=== PATIENT | female | born 1985 | race Caucasian/White ===

== ENCOUNTER 2018-02-11 22:42 | Emergency (ER) | payer OTHER ==
[~2018-02-11] VITALS: Ht 167.6 cm; Wt 150.1 kg
[2018-02-11 22:48] VITALS: BP 149/86
--- NOTE | 2018-02-11 22:52 | NUR ---
Pt sent to lobby to wait for ED bed.
--- NOTE | 2018-02-12 01:06 | NUR ---
PT TAKEN TO BED 10
--- NOTE | 2018-02-12 02:00 | NUR ---
PT BIB SELF C/O HEADACHE FOR 3 DAYS, PT HAS TAKEN TYLENOL AT HOME W/ NO RELIEF, PT STATES SHE IS UNABLE TO SLEEP AND ZAVALA IS WORSENING TODAY. PT HAS SENSITIVITY TO LIGHT AND SOUND. PT IS AWAKE AND ACTING APPROPRIATE, EYES PERRL. PT LAYING IN BED, LIGHTS DIMMED, PT POSITIONED TO COMFORT. NO PMH
--- NOTE | 2018-02-12 03:01 | NUR ---
PT PENDING MD SIMMONS, IN BED SLEEPING, NO NEW NEEDS AT THIS TIME.
[2018-02-12] MEDS ORDERED: NACL 0.9% 1,000 ML IV SCH (03:11)
[2018-02-12] MEDS ORDERED: METOCLOPRAMIDE 10 MG/2 ML INJ VIAL IVP ONE (03:15)
[2018-02-12] MEDS ORDERED: MORPHINE SULFATE 4 MG/ML SYR IM ONE (03:15)
[2018-02-12 03:32] LABS: APPEARANCE,URINE CLEAR (CLEAR)
[2018-02-12 03:33] LABS: BILIRUBIN,URINE NEGATIVE (NEGATIVE); BLOOD, URINE NEGATIVE (NEGATIVE); COLOR,URINE YELLOW (YELLOW); LEUKOCYTE ESTERASE ,URINE NEGATIVE (NEGATIVE); NITRITE, URINE NEGATIVE (NEGATIVE); UGLUCOSE NEGATIVE (NEGATIVE)
--- NOTE | 2018-02-12 04:51 | NUR ---
PT IN BED SLEEPING EASLY AROUSABLE, STATES NO HEADACHE AT THIS TIME, COMFORT NEEDS MET.
[2018-02-12 05:32] VITALS: BP 139/76
--- NOTE | 2018-02-12 05:32 | NUR ---
Patient discharged with v/s stable. Written and verbal after care instructions given and explained. Patient alert, oriented and verbalized understanding of instructions. Ambulatory with steady gait. All questions addressed prior to discharge. ID band removed. Patient advised to follow up with PMD. Rx of NORCO, REGLAN given. Patient educated on indication of medication including possible reaction and side effects. Opportunity to ask questions provided and answered. PT ACCOMPANIED BY FRIEND WHO WILL BE DRIVING HOME, PT ADVISED NOT TO DRIVE.
== END 2018-02-12 05:32 | disposition home or self-care (01) ==
LOC: MED 22:42
DX: R51 Headache (principal); R11.2 Nausea with vomiting, unspecified; F12.10 Cannabis abuse, uncomplicated; Z90.89 Acquired absence of other organs; Z90.49 Acquired absence of other specified parts of digestive tract; Z88.6 Allergy status to analgesic agent
CPT/HCPCS: 81003; 81025; 96361; 96374; 96375; 99284; J2270; J2765; J7030

== ENCOUNTER 2018-07-21 23:40 | Emergency (ER) | payer OTHER ==
[~2018-07-21] VITALS: Ht 167.6 cm; Wt 147.9 kg
[2018-07-21 23:45] VITALS: BP 154/77
--- NOTE | 2018-07-21 23:52 | NUR ---
PT AMULATED TO BED 12. URINE SAMPLE COLLECTED.
--- NOTE | 2018-07-22 00:23 | NUR ---
PT TO ED WITH C/O HEADACHE X 2 DAYS. PT REPORT N/V. NO NEURO DEFECITS NOTED. PMH OF MIGRAINES. PT PLACED INTO BED, PENDING MD SIMMONS.
[2018-07-22] MEDS ORDERED: ONDANSETRON 4 MG ODT PO ONE (00:25)
[2018-07-22] MEDS ORDERED: KETOROLAC 60 MG/2 ML VIAL IM ONE (00:25)
[2018-07-22] MEDS ORDERED: MORPHINE SULFATE 4 MG/ML SYR IM ONE (01:05)
--- NOTE | 2018-07-22 02:47 | NUR ---
Patient discharged with v/s stable. Written and verbal after care instructions given and explained. Patient alert, oriented and verbalized understanding of instructions. Ambulatory with steady gait. All questions addressed prior to discharge. ID band removed. Patient advised to follow up with PMD. Rx of FIORCET given. Patient educated on indication of medication including possible reaction and side effects. Opportunity to ask questions provided and answered.
[2018-07-22 02:48] VITALS: BP 148/97
== END 2018-07-22 02:48 | disposition home or self-care (01) ==
LOC: MED 23:40
DX: G43.909 Migraine, unspecified, not intractable, without status migrainosus (principal); F17.210 Nicotine dependence, cigarettes, uncomplicated; Z98.890 Other specified postprocedural states; Z88.6 Allergy status to analgesic agent; Z71.6 Tobacco abuse counseling
CPT/HCPCS: 81002; 81025; 96372; 99283; J1885; J2270; Q0162

== ENCOUNTER 2018-12-13 14:14 | Emergency (ER) | payer OTHER ==
[~2018-12-13] VITALS: Ht 167.6 cm; Wt 147.1 kg
[2018-12-13 14:19] VITALS: BP 130/88
--- NOTE | 2018-12-13 16:14 | NUR ---
PT VSS. PT REPORTS /10 MIDSTERNAL NON RADIATING SQUEEZING PAIN ALONG W/ HEADACHE. NO N/V, NO VISUAL DISTURBANCES, AAOX4, CAP REFIL <2 SEC, RR EVEN AND NON-LABORED, RADIAL PULSES EQUAL 2+
--- NOTE | 2018-12-13 16:38 | NUR ---
PT BIB SELF WITH C/O CP X3 DAYS. NON-RADIATING CONSTANT MIDSTERNAL SQUEEZING PRESSURE AT 7/10 THAT INCREASES AND TURNS INTO SHARP PAIN W/ COUGH. COUGH X2 DAY. PT STATES THAT SHE COUGHS GREEN SPUTUM, HAS CHIILS AND FEELS WARM, NO TEMP TAKEN AT HOME. DENIES ANY N,V, D ATB THIS TIME. BREATHING EVEN AND NON-LABORED. COUGH PRESENT . SLIGHT WHEEZING ON RT LUNGS UPON AUSCULTATION. CONNECTED TO MONITOR. O2 SAT 95% ON RA. ER TO SEE THE PT. WILL CONTINUE TO MONITOR PT. MEDHX:OBESE RX:DENIES
[2018-12-13] MEDS ORDERED: ALBUTEROL 0.083% 2.5 MG/3 ML NEBU INH ONE (17:45)
--- NOTE | 2018-12-13 17:51 | NUR ---
Patient taken to XRAY via wheelchair by tech.
[2018-12-13 19:30] VITALS: BP 141/60
--- NOTE | 2018-12-13 19:30 | NUR ---
Patient discharged with v/s stable. Written and verbal after care instructions given and explained. Patient alert, oriented and verbalized understanding of instructions. Ambulatory with steady gait. All questions addressed prior to discharge. ID band removed. Patient advised to follow up with PMD. Rx of PREDNISONE, DEXTROMETHORPHAN HYDROBROMIDE, TESSALON PERLES given. Patient educated on indication of medication including possible reaction and side effects. Opportunity to ask questions provided and answered.
== END 2018-12-13 19:30 | disposition home or self-care (01) ==
LOC: MED 14:14
DX: J20.8 Acute bronchitis due to other specified organisms (principal); Z88.6 Allergy status to analgesic agent; Z98.890 Other specified postprocedural states; Z90.49 Acquired absence of other specified parts of digestive tract
CPT/HCPCS: 71046; 93005; 94640; 99283; J7613

== ENCOUNTER 2022-01-10 02:51 | Emergency (ER) | payer OTHER ==
[~2022-01-10] VITALS: Ht 167.6 cm; Wt 129.3 kg
[2022-01-10 03:12] VITALS: BP 143/88
--- NOTE | 2022-01-10 03:15 | NUR ---
PT TO LOBBY
--- NOTE | 2022-01-10 03:45 | NUR ---
PT TAKEN TO RAD
[2022-01-10] MEDS ORDERED: METH4TAB1 PO (04:12)
[2022-01-10 04:15] VITALS: BP 143/88
--- NOTE | 2022-01-10 04:15 | NUR ---
Patient discharged with v/s stable. Written and verbal after care instructions given and explained. Patient alert, oriented and verbalized understanding of instructions. Ambulatory with steady gait. All questions addressed prior to discharge. ID band removed. Patient advised to follow up with PMD. Rx of MEDROL given. Patient educated on indication of medication including possible reaction and side effects. Opportunity to ask questions provided and answered.
== END 2022-01-10 04:15 | disposition home or self-care (01) ==
LOC: MED 02:51
DX: J20.8 Acute bronchitis due to other specified organisms (principal); F17.200 Nicotine dependence, unspecified, uncomplicated; Z90.49 Acquired absence of other specified parts of digestive tract; Z98.890 Other specified postprocedural states; Z79.899 Other long term (current) drug therapy; Z88.6 Allergy status to analgesic agent
CPT/HCPCS: 71045; 99283

== ENCOUNTER 2022-05-03 17:17 | Emergency (ER) | payer OTHER ==
[~2022-05-03] VITALS: Ht 175.3 cm; Wt 117.9 kg
[~2022-05-03 17:17] MED LIST: METH4TAB1 PO
[2022-05-03 17:19] VITALS: BP 195/91
[2022-05-03] MEDS ORDERED: CYCL-711 PO (18:21)
[2022-05-03] MEDS ORDERED: LID5T TP (18:21)
[2022-05-03] MEDS: KETOROLAC 30 MG/ML VIAL IM ONE (18:30)
[2022-05-03 18:45] VITALS: BP 161/80
--- NOTE | 2022-05-03 18:46 | NUR ---
Patient discharged with v/s stable. Written and verbal after care instructions given and explained. Patient alert, oriented and verbalized understanding of instructions. Ambulatory with steady gait. All questions addressed prior to discharge. ID band removed. Patient advised to follow up with PMD. Rx of LIDODERM, FLEXERIL given. Patient educated on indication of medication including possible reaction and side effects. Opportunity to ask questions provided and answered.
== END 2022-05-03 18:45 | disposition home or self-care (01) ==
LOC: MED 17:17
DX: M54.50 Low back pain, unspecified (principal); Z79.899 Other long term (current) drug therapy; Z88.6 Allergy status to analgesic agent
CPT/HCPCS: 81025; 96372; 99283; J1885

== ENCOUNTER 2023-07-09 07:09 | Emergency (ER) | payer MEDICAID, OTHER ==
[~2023-07-09] VITALS: Ht 162.6 cm; Wt 123.4 kg
[~2023-07-09 07:09] MED LIST changes: +CYCL-711 PO; +LID5T TP
[2023-07-09 07:25] VITALS: BP 146/86; PULSE 74; RESP 18; TEMP 97; O2SAT 99
[2023-07-09] MEDS ORDERED: ACET-10509 PO (07:55)
[2023-07-09] MEDS ORDERED: TOBR5SOL38 LEFT EYE (07:55)
[2023-07-09 08:09] VITALS: BP 146/86; PULSE 74; RESP 18; TEMP 97; O2SAT 99
== END 2023-07-09 08:09 | disposition home or self-care (01) ==
LOC: MED 07:09
DX: H00.014 Hordeolum externum left upper eyelid (principal); Z90.49 Acquired absence of other specified parts of digestive tract; Z88.6 Allergy status to analgesic agent; Z79.899 Other long term (current) drug therapy
CPT/HCPCS: 99283

== ENCOUNTER 2023-10-18 11:34 | Emergency (ER) | payer MEDICAID, OTHER ==
[~2023-10-18] VITALS: Ht 167.6 cm; Wt 118.6 kg
[~2023-10-18 11:34] MED LIST changes: +ACET-10509 PO; +TOBR5SOL38 LEFT EYE
[2023-10-18 11:54] VITALS: BP 162/93; PULSE 69; RESP 17; TEMP 98.5; O2SAT 99
[2023-10-18] MEDS: NACL 0.9% 1,000 ML IV ONE (12:58)
[2023-10-18 13:02] VITALS: TEMP 98
[2023-10-18 13:06] LABS: BASOPHILS % (AUTO) 0.4 % (0.0-2.0); EOSINOPHILS % (AUTO) 0.3 % (0.0-4.0); HEMATOCRIT 40.1 % (36-48); HEMOGLOBIN 13.6 g/dL (12.0-16.0); LYMPHOCYTES # (AUTO) 2.3 K/uL (2.5-16.5); LYMPHOCYTES % (AUTO) 27.7 % (20.5-51.1); MEAN CORPUSCULAR HEMOGLOBIN 29 pg (27-31); MEAN CORPUSCULAR HGB CONC 34 g/dL (33-37); MEAN CORPUSCULAR VOLUME 85.9 fL (80-94); MONOCYTES # (AUTO) 0.8 K/uL (0.8-1.0); MONOCYTES % (AUTO) 9.2 % (1.7-9.3); NEUTROPHILS # (AUTO) 5.1 K/uL (1.8-7.7); NEUTROPHILS % (AUTO) 62.4 % (42.2-75.2); PLATELET COUNT (AUTO) 257 K/uL (140-450); RED BLOOD CELL COUNT(AUTO) 4.67 MIL/uL (4.20-5.40); RED CELL DISTRIBUTION WIDTH 13.5 % (11.6-13.7); WHITE BLOOD COUNT (AUTO) 8.2 K/uL (4.8-10.8)
[2023-10-18] MEDS: BUPIVACAINE-MPF 0.5% 30 ML VIAL INJ ONE (13:14)
[2023-10-18 13:25] LABS: ANION GAP 14.5 (8-16); CARBON DIOXIDE 27.3 mmol/L (21-32); CREATININE 0.7 mg/dL (0.6-1.3); POTASSIUM 3.8 mmol/L (3.5-5.1)
[2023-10-18 13:30] LABS: ALBUMIN 3.6 g/dL (3.4-5.0); BILIRUBIN,DIRECT 0.2 mg/dL (0.0-0.3); TOTAL BILIRUBIN 1.2 mg/dL (0.0-1.0)
[2023-10-18 13:55] LABS: APPEARANCE,URINE CLEAR (CLEAR); BILIRUBIN,URINE NEGATIVE (NEGATIVE); BLOOD, URINE NEGATIVE (NEGATIVE); COLOR,URINE YELLOW (YELLOW); LEUKOCYTE ESTERASE ,URINE NEGATIVE (NEGATIVE); NITRITE, URINE NEGATIVE (NEGATIVE); PROTEIN,URINE 1+ (NEGATIVE); UGLUCOSE 3+ (NEGATIVE); UROBILINOGEN,URINE 0.2 EU/dL (0.2 - 1)
[2023-10-18 14:09] LABS: BACTERIA,URINE 0-2 /HPF (None Seen); RBC,URINE 0-5 /HPF (0-5); SQUAMOUS EPITHELIAL CELL,UR 4-10 (MOD) /LPF (0-3 (FEW)); WBC,URINE 0-5 /HPF (0-5)
[2023-10-18] MEDS: MORPHINE SULFATE 4 MG/ML SYR IVP ONE (14:24)
[2023-10-18] MEDS ORDERED: METF-346 PO (14:28)
[2023-10-18] MEDS: ONDANSETRON 4 MG/2 ML VIAL IVP ONE (14:31)
[2023-10-18 14:56] VITALS: BP 122/66; PULSE 64; RESP 12; O2SAT 99
== END 2023-10-18 14:56 | disposition home or self-care (01) ==
LOC: MED 11:34
DX: R73.9 Hyperglycemia, unspecified (principal); R51.9 Headache, unspecified; Z79.84 Long term (current) use of oral hypoglycemic drugs; Z79.2 Long term (current) use of antibiotics; Z79.899 Other long term (current) drug therapy; Z88.6 Allergy status to analgesic agent
CPT/HCPCS: 36415; 80048; 80076; 81001; 81025; 82948; 85025; 96361; 96374; 96375; 99284; J2270; J2405; J3490; J7030